=== PATIENT | female | born 1990 | race Caucasian/White ===

== ENCOUNTER 2018-03-01 17:52 | Emergency (ER) | payer SELFPAY ==
--- NOTE | 2018-03-01 18:18 | EDM.PDOC ---
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 Patient states she is currently with a LMP 01/04/2018. Has not received any care at this point. Positive home test. Denies any recent pelvic activity. She denies any fever, chills, chest pain, shortness of breath or off. Denies any nausea, vomiting, diarrhea or constipation. 4, para 2; has had one miscarriage. [employer] was used to translate for this patient, Nigerien speaking. Review of systems: As per history of present illness and below otherwise all systems reviewed and negative. Past medical history: As per history of present illness and as reviewed below otherwise noncontributory. Surgical history: As per history of present illness and as reviewed below otherwise noncontributory. Social history: No reported history of drug or alcohol abuse. Family history: As per history of present illness and as reviewed below otherwise noncontributory. Physical exam: General: Well-developed and well-nourished 27-year-old female. Alert and oriented. Nontoxic appearing and in no acute distress. HEENT: Atraumatic, normocephalic, pupils equal and reactive bilaterally, negative for conjunctival pallor or scleral icterus, mucous membranes moist, throat clear, neck supple, nontender, trachea midline. No drooling or trismus noted. No meningeal signs Lungs: Clear to auscultation, breath sounds equal bilaterally, chest nontender. Heart: S1S2, regular rate and rhythm without overt murmur Abdomen: Soft, nondistended, nontender. Negative for masses or hepatosplenomegaly. Negative for costovertebral tenderness. Pelvis: Stable nontender. Genitourinary: Deferred. Rectal: Deferred. Skin: Intact, warm, dry. No lesions or rashes noted. Extremities: Atraumatic, negative for cords or calf pain. Neurovascular unremarkable. Neuro: Awake, alert, oriented. Cranial nerves II through XII unremarkable. Cerebellum unremarkable. Motor and sensory unremarkable throughout. Exam nonfocal. Notes: Lab work is unremarkable. Quant HCG is 44,557. Ultrasound shows a viable IUP with gestational age Related at 7 weeks 1 day. Possible small subchorionic hemorrhage. This was shared with the patient. She was provided with education and pelvic rest, repeat HCG quant, and close follow up with an OBGYN. She voices understanding and denies any further questions at this time. Diagnostics: CBC, CMP, AB/Rh, quantitative hCG, UA, OB transvaginal ultrasound Therapeutics: [] Impression: Vaginal Bleeding in First Trimester Plan: 1. Ultrasound shows you are 7 weeks, 1 day with an estimated due date of 2017. Pelvic rest until you follow up with and are cleared by your OBGYN (No sex , tampons, douches, etc...) 2. Tylenol as needed for pain management. 3. You need to return for a repeat LAB (Quantitative HCG). We want to make sure this number is going up (expected in a healthy ) 4. Establish care with an OBGYN and follow up with them in the 1-2 days. Return to the ED as needed and as discussed. Definitive disposition and diagnosis as appropriate pending reevaluation and review of above. Onset: Today Duration: Hour(s): Location: Reports: Pelvis Lower Abdomen Pain Score (Numeric/FACES): 7 - Related Data Allergies Allergy/AdvReac Type Severity Reaction Status Date / Time No Known Allergies Allergy Verified 03/01/18 18:04 Home Meds: Home Meds . [No Known Home Meds] 03/01/18 [History] ED ROS GENERAL - Review of Systems Review Of Systems: ROS reveals no pertinent complaints other than HPI. ED EXAM, GI/ABD - Physical Exam Exam: See Below (See dictation) Course - Vital Signs Last Recorded V/S: Last Vital Signs Temp 97.8 F 03/01/18 18:12 Pulse 75 03/01/18 18:12 Resp 20 03/01/18 18:12 BP 126/81 03/01/18 18:12 Pulse Ox 99 03/01/18 18:12 - Orders/Labs/Meds Orders: Active Orders 24 hr Category Date Time Status OB Transvaginal [US] Stat Exams 03/01/18 17:56 Taken HCG QUALITATIVE,URINE [URCHEM] Stat Lab 03/01/18 18:17 Ordered UA W/MICROSCOPIC [URIN] Stat Lab 03/01/18 18:17 Ordered Labs: Laboratory Tests 03/01/18 03/01/18 03/01/18 Range/Units 18:07 18:07 18:07 WBC 8.40 (4.0-11.0) K/uL RBC 4.66 (4.30-5.90) M/uL Hgb 13.9 (12.0-16.0) g/dL Hct 41.2 (36.0-46.0) % MCV 88.4 (80.0-98.0) fL MCH 29.8 (27.0-32.0) pg MCHC 33.7 (31.0-37.0) g/dL RDW Std Deviation 43.3 (28.0-62.0) fl RDW Coeff of Sloan 13 (11.0-15.0) % Plt Count 272 (150-400) K/uL MPV 9.80 (7.40-12.00) fL Neut % (Auto) 63.6 (48.0-80.0) % Lymph % (Auto) 30.4 (16.0-40.0) % [place] % (Auto) 4.6 (0.0-15.0) % Eos % (Auto) 1.2 (0.0-7.0) % Baso % (Auto) 0.2 (0.0-1.5) % Neut # (Auto) 5.3 (1.4-5.7) K/uL Lymph # (Auto) 2.6 H (0.6-2.4) K/uL [place]ipton # (Auto) 0.4 (0.0-0.8) K/uL Eos # (Auto) 0.1 (0.0-0.7) K/uL Baso # (Auto) 0.0 (0.0-0.1) K/uL Nucleated RBC % 0.0 /100WBC Nucleated RBCs # 0 K/uL Sodium 139 (136-145) mmol/L Potassium 3.8 (3.5-5.1) mmol/L Chloride 103 (98-107) mmol/L Carbon Dioxide 26.0 (21.0-32.0) mmol/L BUN 9 (7.0-18.0) mg/dL Creatinine 0.7 (0.6-1.0) mg/dL Est Cr Clr Drug Dosing 94.67 mL/min Estimated GFR (MDRD) > 60.0 ml/min Glucose 114 H (74-106) mg/dL Calcium 9.6 (8.5-10.1) mg/dL Total Bilirubin 0.4 (0.2-1.0) mg/dL AST 14 L (15-37) IU/L ALT 19 (14-63) IU/L Alkaline Phosphatase 58 (46-116) U/L Total Protein 7.6 (6.4-8.2) g/dL Albumin 3.8 (3.4-5.0) g/dL Globulin 3.8 H (2.0-3.5) g/dL Albumin/Globulin Ratio 1.0 L (1.3-2.8) HCG, Quant mIU/mL Urine Color Urine Appearance Urine pH (5.0-8.0) Ur Specific Winston (1.001-1.035) Urine Protein (NEGATIVE) mg/dL Urine Glucose (UA) (NEGATIVE) mg/dL Urine Ketones (NEGATIVE) mg/dL Urine Occult Blood (NEGATIVE) Urine Nitrite (NEGATIVE) Urine Bilirubin (NEGATIVE) Urine Urobilinogen (<2.0) EU/dL Ur Leukocyte Esterase (NEGATIVE) Urine RBC (0-2/HPF) Urine WBC (0-5/HPF) Ur Epithelial Cells (NONE-FEW) Urine Bacteria (NEGATIVE) Urine HCG, Qual (NEGATIVE) Blood Type O POSITIVE 03/01/18 03/01/18 03/01/18 Range/Units 18:07 18:17 18:17 WBC (4.0-11.0) K/uL RBC (4.30-5.90) M/uL Hgb (12.0-16.0) g/dL Hct (36.0-46.0) % MCV (80.0-98.0) fL MCH (27.0-32.0) pg MCHC (31.0-37.0) g/dL RDW Std Deviation (28.0-62.0) fl RDW Coeff of Sloan (11.0-15.0) % Plt Count (150-400) K/uL MPV (7.40-12.00) fL Neut % (Auto) (48.0-80.0) % Lymph % (Auto) (16.0-40.0) % [place]ipt[place] % (Auto) (0.0-15.0) % Eos % (Auto) (0.0-7.0) % Baso % (Auto) (0.0-1.5) % Neut # (Auto) (1.4-5.7) K/uL Lymph # (Auto) (0.6-2.4) K/uL [place] # (Auto) (0.0-0.8) K/uL Eos # (Auto) (0.0-0.7) K/uL Baso # (Auto) (0.0-0.1) K/uL Nucleated RBC % /100WBC Nucleated RBCs # K/uL Sodium (136-145) mmol/L Potassium (3.5-5.1) mmol/L Chloride (98-107) mmol/L Carbon Dioxide (21.0-32.0) mmol/L BUN (7.0-18.0) mg/dL Creatinine (0.6-1.0) mg/dL Est Cr Clr Drug Dosing mL/min Estimated GFR (MDRD) ml/min Glucose (74-106) mg/dL Calcium (8.5-10.1) mg/dL Total Bilirubin (0.2-1.0) mg/dL AST (15-37) IU/L ALT (14-63) IU/L Alkaline Phosphatase (46-116) U/L Total Protein (6.4-8.2) g/dL Albumin (3.4-5.0) g/dL Globulin (2.0-3.5) g/dL Albumin/Globulin Ratio (1.3-2.8) HCG, Quant 73636.0 mIU/mL Urine Color YELLOW Urine Appearance CLEAR Urine pH 6.0 (5.0-8.0) Ur Specific Winston 1.025 (1.001-1.035) Urine Protein NEGATIVE (NEGATIVE) mg/dL Urine Glucose (UA) NEGATIVE (NEGATIVE) mg/dL Urine Ketones NEGATIVE (NEGATIVE) mg/dL Urine Occult Blood TRACE-INTACT (NEGATIVE) Urine Nitrite NEGATIVE (NEGATIVE) Urine Bilirubin NEGATIVE (NEGATIVE) Urine Urobilinogen 0.2 (<2.0) EU/dL Ur Leukocyte Esterase NEGATIVE (NEGATIVE) Urine RBC 1-2 (0-2/HPF) Urine WBC 0-1 (0-5/HPF) Ur Epithelial Cells RARE (NONE-FEW) Urine Bacteria RARE (NEGATIVE) Urine HCG, Qual POSITIVE (NEGATIVE) Blood Type Departure - Departure Time of Disposition: 19:34 Disposition: Home, Self-Care 01 Clinical Impression: First-trimester bleeding - Discharge Information Instructions: Vaginal Bleeding During , First Trimester, [id number] Referrals: PCP,None [Primary Care Provider] - Forms: ED Department Discharge Additional Instructions: The following information is given to patients seen in the emergency department who are being discharged to home. This information is to outline your options for follow-up care. We provide all patients seen in our emergency department with a follow-up referral. The need for follow-up, as well as the timing and circumstances, are variable depending upon the specifics of your emergency department visit. If you don't have a primary care physician on staff, we will provide you with a referral. We always advise you to contact your personal physician following an emergency department visit to inform them of the circumstance of the visit and for follow-up with them and/or the need for any referrals to a consulting specialist. The emergency department will also refer you to a specialist when appropriate. This referral assures that you have the opportunity for follow-up care with a specialist. All of these measure are taken in an effort to provide you with optimal care, which includes your follow-up. Under all circumstances we always encourage you to contact your private physician who remains a resource for coordinating your care. When calling for follow-up care, please make the office aware that this follow-up is from your recent emergency room visit. If for any reason you are refused follow-up, please contact the Emergency Department at and asked to speak to the emergency department charge nurse. Primary Care - Women's Health (UZAIR WHELAN - NURSE EXTENSION PROFESSOR) [address] [place] [id number] [facility] [address] [place] [address] 1. Ultrasound shows you are 7 weeks, 1 day with an estimated due date of 2017. Pelvic rest until you follow up with and are cleared by your OBGYN (No sex , tampons, douches, etc...) 2. Tylenol as needed for pain management. 3. You need to return for a repeat LAB (Quantitative HCG). We want to make sure this number is going up (expected in a healthy ) 4. Establish care with an OBGYN and follow up with them in the 1-2 days. Return to the ED as needed and as discussed. - My Orders Last 24 Hours: My Active Orders 03/01/18 17:56 OB Transvaginal [US] Stat 03/01/18 18:17 HCG QUALITATIVE,URINE [URCHEM] Stat UA W/MICROSCOPIC [URIN] Stat - Assessment/Plan Last 24 Hours: My Active Orders 03/01/18 17:56 OB Transvaginal [US] Stat 03/01/18 18:17 HCG QUALITATIVE,URINE [URCHEM] Stat UA W/MICROSCOPIC [URIN] Stat
[2018-03-01 18:44] LABS: CHLORIDE,CL 103 mmol/L (98-107); SODIUM,NA 139 mmol/L (136-145)
--- NOTE | 2018-03-02 10:07 | US ---
EXAM DATE: 03/01/18 PATIENT'S AGE: 27 Patient: EVAN ZUNIGA Facility: [place], [place] Site . Site : [id number] Study: OB Pelvis [id number]/1/2018 7:15:52 PM Ordering Physician: Doctor Victor Final Report: INDICATION: Cramping and bleeding TECHNIQUE: Ultrasound OB pelvis transvaginal. Real time wilcox scale imaging of the pelvis was performed. COMPARISON: None FINDINGS: LMP: 01/04/2018 Gestational age by LMP: 8 weeks 0 days Estimated due date by LMP: 10/11/2018 Sonographic imaging demonstrates a single living intrauterine gestation. The embryo demonstrates a regular cardiac rate measuring 156 beats per minute. The embryo`s crown rump length measurement of 1.03 cm corresponds to a gestational age of 7 weeks 1 day with a sonographic due date of 10/15/2018. There is a normal appearing yolk sac. There are no gross abnormalities noted within the embryo at this early state of development. The placenta has not yet developed. Small probable subchorionic hemorrhage. The amount of fluid within the sac appears appropriate for gestational age. The cervix is closed. Anterior uterine fibroid versus myometrial contraction. The ovaries are of normal size. There are no suspicious fluid collections noted in the cul-de-sac. IMPRESSION: Viable intrauterine . Gestational age calculated at 7 weeks 1 day with a sonographic due date of 10/15/2018. Probable small subchorionic hemorrhage. Dictated by Wilmer Yoo MD @ 03/01/2018 7:26:26 PM Dictated by: Wilmer Yoo MD @ 03/01/2018 19:26:46 (Electronic Signature) Report Signed by Proxy. [email or web address]
== END 2018-03-01 19:51 | disposition home or self-care (01) ==
LOC: MW.ED 17:52
DX: O20.9 Hemorrhage in early pregnancy, unspecified (principal); Z3A.01 Less than 8 weeks gestation of pregnancy
CPT/HCPCS: 36415; 76817; 76817-26; 80053; 81001; 81025; 84702; 85025; 86900; 86901; 99283; 99284-25